=== PATIENT | female | born 1980 | race Two or more races ===

== ENCOUNTER 2023-05-24 09:48 | Outpatient (CLI) | payer BC, SELFPAY ==
--- NOTE | 2023-05-24 10:15 | CRLHL7_ITS ---
For Patients: As a result of the Century Cures Act, medical imaging exams and procedure reports are released immediately into your electronic medical record. You may view this report before your referring provider. If you have questions, please contact your health care provider. BILATERAL SCREENING MAMMOGRAM WITH COMPUTER-AIDED DETECTION AND TOMOSYNTHESIS TECHNIQUE: CC and MLO views were obtained. These mammographic images have been obtained using full-field digital technique. These mammographic images were interpreted with the benefit of computer-aided detection. Breast Tomosynthesis was used in this interpretation. COMPARISON FILM: 05/26/20. FINDINGS: There are scattered areas of fibroglandular density IMPRESSION: There is no radiographic evidence for malignancy. ASSESSMENT: BI-RADS Category 1: Negative RECOMMENDATION: Routine screening mammogram in 1 year. A lay language report of this examination will be provided to the patient. Rickey Turner M.D. Diagnostic Radiologist [email or web address] JOSE/Dictated by: Rickey Turner MD @ 05/24/2023 12:11:00 PM (Electronically Signed)
== END 2023-05-24 09:49 | disposition home or self-care (01) ==
LOC: MAMMO 09:50
PROVIDERS: PCP Family Medicine; Visit Provider Family Medicine
DX: Z12.31 Encounter for screening mammogram for malignant neoplasm of breast (principal)
CPT/HCPCS: 77063; 77067

== ENCOUNTER 2024-06-26 08:56 | Outpatient (CLI) | payer BC, SELFPAY | END 2024-06-26 08:57 | disposition home or self-care (01) | LOC: NFLDREF 07-04 19:39 | PROVIDERS: PCP Family Medicine; Referring Provider Family Medicine; Visit Provider Family Medicine | DX: R82.90 Unspecified abnormal findings in urine (principal) | CPT/HCPCS: 87086 ==

== ENCOUNTER 2024-07-17 09:20 | Outpatient (CLI) | payer BC, SELFPAY | END 2024-07-17 09:21 | disposition home or self-care (01) | LOC: NFLDREF 07-28 23:08 | PROVIDERS: PCP Family Medicine; Referring Provider Family Medicine; Visit Provider Registered Nurse | DX: R39.9 Unspecified symptoms and signs involving the genitourinary system (principal) | CPT/HCPCS: 87086 ==

== ENCOUNTER 2024-07-27 07:10 | Outpatient (CLI) | payer BC, SELFPAY ==
--- NOTE | 2024-07-27 07:15 | CRLHL7_ITS ---
For Patients: As a result of the Century Cures Act, medical imaging exams and procedure reports are released immediately into your electronic medical record. You may view this report before your referring provider. If you have questions, please contact your health care provider. CLINICAL HISTORY: Pelvic and perineal pain TECHNIQUE: 2D terrell scale ultrasound. In addition color Doppler and spectral Doppler analysis was performed of the pelvis using a transabdominal and transvaginal approach. COMPARISON US 03-01-2017, 12-17-2016, CT 01-22-2018 FINDINGS: The uterus is absent. The right ovary measures 3.2 x 1.6 x 2.5 cm in size and the left ovary is not visualized. The right ovary demonstrates normal arterial and venous blood flow on color Doppler and spectral Doppler analysis. There are no suspicious fluid collections within the cul-de-sac. Simple cyst right ovary measures 14 x 9 x 10 millimeters. IMPRESSION: Simple right ovarian cyst measures 14 millimeters. No torsion or excess pelvic free fluid. Dictated by Rickey Turner MD @ 07/27/2024 8:34:28 AM (Electronically Signed)
--- NOTE | 2024-07-27 08:15 | CRLHL7_ITS ---
For Patients: As a result of the Century Cures Act, medical imaging exams and procedure reports are released immediately into your electronic medical record. You may view this report before your referring provider. If you have questions, please contact your health care provider. BILATERAL SCREENING MAMMOGRAM WITH COMPUTER-AIDED DETECTION AND TOMOSYNTHESIS TECHNIQUE: CC and MLO views were obtained. These mammographic images have been obtained using full-field digital technique. These mammographic images were interpreted with the benefit of computer-aided detection. Breast tomosynthesis was used in this interpretation. COMPARISON FILM: 05/24/23, 05/26/20. FINDINGS: There are scattered areas of fibroglandular density. IMPRESSION: There is no radiographic evidence for malignancy. ASSESSMENT: BI-RADS Category 1: Negative RECOMMENDATION: Routine screening mammogram in 1 year. A lay language report of this examination will be provided to the patient. RICKEY MARCUS M.D. Diagnostic Radiologist [email or web address] [email or web address] Transcribed: 07/27/2024, 1:[address]/Dictated by: Rickey Marcus MD @ 07/27/2024 8:50:00 AM (Electronically Signed)
== END 2024-07-27 07:11 | disposition home or self-care (01) ==
LOC: US 07:11
PROVIDERS: PCP Family Medicine; Visit Provider Registered Nurse
DX: Z12.31 Encounter for screening mammogram for malignant neoplasm of breast (principal); R10.2 Pelvic and perineal pain; N83.291 Other ovarian cyst, right side
CPT/HCPCS: 76830; 76856; 77063; 77067; 93976

== ENCOUNTER 2024-12-24 10:30 | Outpatient (CLI) | payer BC, SELFPAY | END 2024-12-24 10:31 | disposition home or self-care (01) | LOC: NFLDREF 12-28 17:48 | PROVIDERS: PCP Family Medicine; Referring Provider Family Medicine; Visit Provider Physician Assistant | DX: R30.0 Dysuria (principal); N89.8 Other specified noninflammatory disorders of vagina | CPT/HCPCS: 87086 ==